=== PATIENT | male | born 1970 | race Caucasian/White ===

== ENCOUNTER 2023-01-18 11:14 | Emergency (ER) | payer SELFPAY ==
[2023-01-18 11:23] VITALS: BP 132/69; PULSE 76; RESP 18; TEMP 98.4; BMI 22.9
[2023-01-18] MEDS ORDERED: DIPHTH,PERTUSS(ACELL),TET 0.5 ML DISP.SYRIN IM ONE ×2 (12:09→12:30)
[2023-01-18] MEDS ORDERED: ACETAMINOPHEN 500 MG TABLET (FP) PO ONE (12:24)
[2023-01-18] MEDS ORDERED: ACETAMINOPHEN 325 MG TABLET (FP) ONE (12:30)
== END 2023-01-18 16:45 | disposition home or self-care (01) ==
LOC: JER 11:14
PROC: 0HQ1XZZ Repair Face Skin, External Approach (ICD-10-PCS; principal; 2023-01-18)
PROC: 3E0234Z Introduction of Serum, Toxoid and Vaccine into Muscle, Percutaneous Approach (ICD-10-PCS; 2023-01-18)
DX: S01.81XA Laceration without foreign body of other part of head, initial encounter (principal); R51.9 Headache, unspecified; R07.89 Other chest pain; M79.604 Pain in right leg; W11.XXXA Fall on and from ladder, initial encounter; W22.8XXA Striking against or struck by other objects, initial encounter
CPT/HCPCS: 70450-TC; 70486-TC; 71046-TC-FY; 72125-TC; 73552-TC-RT-FY; 82962; 90715; 99284-25

== ENCOUNTER 2023-09-03 04:48 | Day surgery (SDC) | payer OTHER ==
[2023-08-31 14:14] VITALS: BMI 31.3
[2023-09-03] MEDS ORDERED: BUPIVACAINE HCL/PF 0.25% (2.5MG/ML) 10 ML VIAL ONE (10:52)
[2023-09-03] MEDS ORDERED: HYDROmorphone HCl 2 MG/ML VIAL ONE (11:26)
[2023-09-03] MEDS ORDERED: MIDAZOLAM HCL 2 MG/2 ML SINGLE DOSE VIAL ONE (11:26)
[2023-09-03] MEDS ORDERED: ROCURONIUM BROMIDE 50 MG/5 ML SYRINGE ONE (11:26)
[2023-09-03] MEDS ORDERED: PROPOFOL 40 ML ONE (11:26)
[2023-09-03] MEDS: ceFAZolin SODIUM 1 GM VIAL IVPB ONE (11:50)
[2023-09-03] MEDS: BUPIVACAINE HCL/PF 0.25% (2.5MG/ML) 10 ML VIAL IJ ONE (12:02)
[2023-09-03] MEDS ORDERED: oxyCODONE HCL 5 MG TABLET PO PRN (13:50)
[2023-09-03] MEDS ORDERED: ONDANSETRON 4 MG/2 ML VIAL IVPUSH PRN (13:50)
[2023-09-03] MEDS ORDERED: SUGAMMADEX SODIUM 200 MG/2 ML VIAL ONE (14:01)
[2023-09-03] MEDS: LACTATED RINGERS SOLUTION 1,000 ML IV SCH (14:25)
[2023-09-03 17:51] VITALS: RESP 18
[2023-09-03 18:57] VITALS: BP 100/50; PULSE 60; TEMP 97.2
== END 2023-09-03 19:12 | disposition home or self-care (01) ==
LOC: JASU-SURG 04:48
PROVIDERS: ATTEND Surgery
PROC: 8E0W4CZ Robotic Assisted Procedure of Trunk Region, Percutaneous Endoscopic Approach (ICD-10-PCS; 2023-09-03)
PROC: 0YU64JZ Supplement Left Inguinal Region with Synthetic Substitute, Percutaneous Endoscopic Approach (ICD-10-PCS; principal; 2023-09-03 10:00)
DX: K40.90 Unilateral inguinal hernia, without obstruction or gangrene, not specified as recurrent (principal)
CPT/HCPCS: 49650; S2900; 86850; 86900; 86901; 88304-TC; 94760; C1781